=== PATIENT | female | born 1990 | race African-American/Black ===

== ENCOUNTER 2019-03-22 12:38 | Emergency (ER) | payer OTHER ==
[~2019-03-22] VITALS: Ht 160 cm; Wt 57.7 kg
[2019-03-22 12:41] VITALS: BP 129/60; PULSE 103; RESP 18; Ht 160 cm; Wt 57.7 kg
== END 2019-03-22 17:10 | disposition home or self-care (01) ==
LOC: E/R 12:38
DX: N93.9 Abnormal uterine and vaginal bleeding, unspecified (principal)
CPT/HCPCS: 76830; 76856; 81001; 84702; 84703; 85025